=== PATIENT | female | born 1995 | race Caucasian/White ===

== ENCOUNTER 2017-03-25 18:57 | Emergency (ER) | payer SELFPAY ==
[2017-03-25 19:30] VITALS: BP 148/95
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
== END 2017-03-25 23:07 | disposition home or self-care (01) ==
LOC: UCEAST 18:57
DX: S50.312A Abrasion of left elbow, initial encounter (principal); S50.311A Abrasion of right elbow, initial encounter; S40.212A Abrasion of left shoulder, initial encounter; S20.319A Abrasion of unspecified front wall of thorax, initial encounter; S16.1XXA Strain of muscle, fascia and tendon at neck level, initial encounter; E04.9 Nontoxic goiter, unspecified; R03.0 Elevated blood-pressure reading, without diagnosis of hypertension; V49.88XA Car occupant (driver) (passenger) injured in other specified transport accidents, initial encounter
CPT/HCPCS: 70450; 72125; 81003; 84702; 99201; G0463